=== PATIENT | female | born 2000 | race African-American/Black ===

== ENCOUNTER 2018-10-25 05:49 | Emergency (ER) | payer OTHER ==
[2018-10-25] MEDS ORDERED: BUTALB/ACETAMINOPHEN/CAFFEINE 1 TAB EACH PO ONE (06:47)
[2018-10-25] MEDS ORDERED: PROMETHAZINE HCL 25 MG TABLET PO ONE (06:47)
--- NOTE | 2018-10-25 06:51 | ER Document Report ---
ED General - General Chief Complaint: Headache Stated Complaint: HEADACHE Time Seen by Provider: 10/25/18 06:36 TRAVEL OUTSIDE OF THE [place] IN LAST 30 DAYS: No - HPI Patient complains to provider of: Headache Notes: Patient coming in for evaluation of headache. Patient has a history of migraine headaches is on Lyrica naproxen and Zofran states her medications not been helping her headache. Patient states headache is more frontal similar to her migraines in the past. Denies any head trauma denies any nausea vomiting fevers chills diarrhea recent travel. Patient states headaches been ongoing for the last 4 days. Patient otherwise amatory no obvious distress upon my evaluation resting comfortably. - Related Data Allergies/Adverse Reactions: iodine Allergy (Verified 10/25/18 06:58) Past Medical History - Social History Smoking Status: Unknown if Ever Smoked Family History: Reviewed & Not Pertinent Review of Systems - Review of Systems Constitutional: No symptoms reported EENT: No symptoms reported Cardiovascular: No symptoms reported Respiratory: No symptoms reported Gastrointestinal: No symptoms reported Genitourinary: No symptoms reported Female Genitourinary: No symptoms reported Musculoskeletal: No symptoms reported Skin: No symptoms reported Hematologic/Lymphatic: No symptoms reported Neurological/Psychological: Headaches -: Yes All other systems reviewed and negative Physical Exam - Vital signs Vitals: Temp Pulse Resp BP Pulse Ox 97.8 F 81 14 130/75 H 99 10/25/18 05:54 10/25/18 05:54 10/25/18 05:54 10/25/18 05:54 10/25/18 05:54 Interpretation: Normal - General General appearance: Appears well, Alert - HEENT Head: Normocephalic, Atraumatic Eyes: Normal Pupils: PERRL - Respiratory Respiratory status: No respiratory distress Chest status: Nontender Breath sounds: Normal Chest palpation: Normal - Cardiovascular Rhythm: Regular Heart sounds: Normal auscultation Murmur: No - Abdominal Inspection: Normal Distension: No distension Bowel sounds: Normal Tenderness: Nontender Organomegaly: No organomegaly - Back Back: Normal, Nontender - Extremities General upper extremity: Normal inspection, Nontender, Normal color, Normal ROM, Normal temperature General lower extremity: Normal inspection, Nontender, Normal color, Normal ROM, Normal temperature, Normal weight bearing. No: Lui's sign - Neurological Neuro grossly intact: Yes Cognition: Normal Orientation: AAOx4 Daniel Coma Scale Eye Opening: Spontaneous [place] Coma Scale Verbal: Oriented [place] Coma Scale Motor: Obeys Commands Daniel Coma Scale Total: 15 Speech: Normal Motor strength normal: LUE, RUE, LLE, RLE Sensory: Normal - Psychological Associated symptoms: Normal affect, Normal mood - Skin Skin Temperature: Warm Skin Moisture: Dry Skin Color: Normal Course - Re-evaluation Re-evalutation: 10/25/18 13:58 The patient presents with headache without signs of [employer] bleed, stroke, infection, or other serious etiology. The patient is neurologically intact. Given the extremely low risk of these diagnoses further testing and evaluation for these possibilities does not appear to be indicated at this time. The patient has been instructed to return if the symptoms worsen or change in any way.. Patient's physical evaluation is normal. There is no neurological deficits. Offered patient IV medications versus p.o. Patient states she rather had p.o. explained to patient we will send her home with a trial of Fioricet and Phenergan. Patient states understanding will be discharged home. - Vital Signs Vital signs: Temp Pulse Resp BP Pulse Ox 98.2 F 73 16 120/64 99 10/25/18 07:07 10/25/18 07:07 10/25/18 07:07 10/25/18 07:07 10/25/18 07:07 Discharge - Discharge Clinical Impression: Migraine Qualifiers: Migraine type: unspecified Status migrainosus presence: without status migrainosus Intractability: not intractable Qualified Code(s): G43.909 - Migraine, unspecified, not intractable, without status migrainosus Condition: Good Disposition: HOME, SELF-CARE Instructions: Headache ([facility]) Additional Instructions: Physical examination does not show any neurological findings. I have recommended to continue with your prescribed migraine medications he may try to Fioricet with severe pain. He may use the Phenergan to help out with nausea. Return to the ER if symptoms worsen. Prescriptions: Butalb/Acetaminophen/Caffeine [Fioricet 50-300-40 mg Capsule] 1 cap PO Q6 #12 cap Promethazine HCl [Phenergan 25 mg Tablet] 1 - 2 tab PO Q6H PRN #15 tablet PRN Reason: Forms: Parent Work Note, Return to Work
[2018-10-25 07:08] VITALS: BP 120/64
== END 2018-10-25 07:24 | disposition home or self-care (01) ==
LOC: ER 05:49
DX: G43.909 Migraine, unspecified, not intractable, without status migrainosus (principal); Z79.899 Other long term (current) drug therapy
CPT/HCPCS: 99283; J3490

== ENCOUNTER 2019-01-06 10:16 | Emergency (ER) | payer OTHER ==
[2019-01-06] MEDS ORDERED: LIDOCAINE 1% INJ-PF (10 MG/ML) 30 ML SDV INJ ONE (10:51)
--- NOTE | 2019-01-06 10:52 | ER Document Report ---
ED Medical Screen (RME) - General Chief Complaint: Breast Lump Stated Complaint: BREAST PAIN Time Seen by Provider: 01/06/19 10:49 TRAVEL OUTSIDE OF THE [place] IN LAST 30 DAYS: No - HPI Notes: 01/06/19 10:51 Patient is a 18-year-old female with a history of facial nerve damage and migraines who presents complaining of possible abscess to her left medial breast area. Patient states that she has had one on the right side that was draining and needed to be put on antibiotics for in the past. Patient states that this 1 has been present for about a month and 1/2 to 2 months. She has not noticed any drainage from it, but does have associated pain and some redness at times. Denies drug allergies. No history of MRSA or IV drug abuse. Denies RODRIGUEZ, fever, neck pain, URI, CP, SOB, Abd pain, dysuria, back pain. I have treated and performed a rapid initial assessment of this patient. A comprehensive ED assessment and evaluation of the patient, analysis of test results and completion of medical decision making process will be conducted by additional ED providers. PHYSICAL EXAMINATION: GENERAL: Well-appearing, well-nourished and in no acute distress. A&Ox4. Answers questions appropriately. LUNGS: Breath sounds clear to auscultation bilaterally and equal. No wheezes rales or rhonchi. HEART: Regular rate and rhythm without murmurs, rubs, gallops. Skin: + fluctuant tender area to the medial left breast. - Related Data Allergies/Adverse Reactions: iodine Allergy (Verified 01/06/19 10:24) Past Medical History Renal/ Medical History: Denies: Hx Peritoneal Dialysis Physical Exam - Vital signs Vitals: Temp Pulse Resp BP Pulse Ox 98.5 F 80 18 145/68 H 97 01/06/19 10:28 01/06/19 10:01/06/19 10:01/06/19 10:01/06/19 10:28 Course - Vital Signs Vital signs: Temp Pulse Resp BP Pulse Ox 98.5 F 80 18 145/68 H 97 01/06/19 10:28 01/06/19 10:28 01/06/19 10:01/06/19 10:28 01/06/19 10:28
--- NOTE | 2019-01-06 13:25 | RADIOLOGY REPORT (SQ) ---
EXAM DESCRIPTION: U/S CHEST COMPLETED DATE/TIME: 01/06/2019 12:42 pm REASON FOR STUDY: lump left medial breast COMPARISON: None. TECHNIQUE: Real-time and static grayscale imaging performed of the left breast targeted to the area of clinical/mammographic concern. Selected color Doppler images recorded. LIMITATIONS: None. FINDINGS: At 8 o'clock position 5 cm from the nipple there is a heterogeneous hypoechoic lesion teja uring 2.5 x 2.4 x 0.5 cm. Mobile debris and internal blood flow on color Doppler. IMPRESSION: Cellulitis. No definitive abscess. BIRAD: 3 Probably benign finding. Initial short-interval follow-up suggested. RECOMMENDATION: RECOMMENDED FOLLOW-UP: Follow-up as clinically indicated. COMMENT: The [employer] (ACR) has developed recommendations for screening MRI of the breasts in certain patient populations, to be used in conjunction with mammography. Breast MRI s urveillance may be appropriate for women with more than 20% lifetime risk of developing breast cancer as determined by genetic testing, significant family history of the disease, or history of mantle r adiation for Hodgkins Disease. ACR Practice Guidelines 2008. TECHNICAL DOCUMENTATION: JOB ID: [id number] [employer]- All Rights Reserved Reading location - IP/workstation name: [email or web address]
--- NOTE | 2019-01-06 13:35 | ER Document Report ---
ED General - General Chief Complaint: Breast Lump Stated Complaint: BREAST PAIN Time Seen by Provider: 01/06/19 10:49 TRAVEL OUTSIDE OF THE [place] IN LAST 30 DAYS: No - HPI Notes: Patient is a 18-year-old female presents emergency department for evaluation of a possible abscess on her left side of her chest. She states she had one on her right breast several months ago. It was already draining. She was treated with antibiotics. She told the physicians at [facility] about the one on her left breast at that time, they stated he would respond to antibiotics. She states that the abscessed area on her left breast has been present for 1 to 2 months. She denies any fevers or chills, no nausea or vomiting. - Related Data Allergies/Adverse Reactions: iodine Allergy (Verified 01/06/19 10:24) Past Medical History - General Information source: Patient - Social History Smoking Status: Never Smoker Frequency of alcohol use: None Drug Abuse: None Family History: Reviewed & Not Pertinent Patient has suicidal ideation: No Patient has homicidal ideation: No Neurological Medical History: Reports: Hx Migraine Renal/ Medical History: Denies: Hx Peritoneal Dialysis Review of Systems - Review of Systems Constitutional: No symptoms reported EENT: No symptoms reported Cardiovascular: No symptoms reported Respiratory: No symptoms reported Gastrointestinal: No symptoms reported Genitourinary: No symptoms reported Musculoskeletal: No symptoms reported Skin: See HPI Neurological/Psychological: No symptoms reported Physical Exam - Vital signs Vitals: Temp Pulse Resp BP Pulse Ox 98.5 F 80 18 145/68 H 97 01/06/19 10:28 01/06/19 10:28 01/06/19 10:28 01/06/19 10:28 01/06/19 10:28 - Notes Notes: Vital signs reviewed, please refer to chart. Head is normocephalic, atraumatic. Pupils equal round, reactive to light. Neck is supple without meningismus. Heart is regular rate and rhythm. Lungs are clear to auscultation bilaterally. Abdomen is soft, nontender, normoactive bowel sounds throughout. Extremities without cyanosis, clubbing. Posterior calves are nontender. Peripheral pulses are equal. Skin is warm and dry. Examination of the left breast yields a approximately 2 cm area that is firm to the touch in the medial aspect. There is no overlying erythema or edema. No palpable fluctuance. Patient is awake, alert, neurological exam is nonfocal. Course - Re-evaluation Re-evalutation: 01/06/19 14:27 Patient presents to the emergency department for evaluation. I did order an ultrasound of her left breast. This showed findings more consistent with cellulitis and actual abscess. I will get and start patient on doxycycline. She is to follow-up with primary care. I did urge the patient to seek out a mammogram as well. She is to return to the emergency department with worsening or new concerning symptoms of any sort. - Vital Signs Vital signs: Temp Pulse Resp BP Pulse Ox 98.5 F 80 18 145/68 H 97 01/06/19 10:28 01/06/19 10:28 01/06/19 10:28 01/06/19 10:28 01/06/19 10:28 Discharge - Discharge Clinical Impression: Cellulitis of left breast Condition: Stable Disposition: HOME, SELF-CARE Instructions: Cellulitis ([facility]) Additional Instructions: No abscess was seen on your ultrasound today. Take all the antibiotic as prescribed. Follow-up with your primary care physician next week. Return to the emergency department with worsening or new concerning symptoms. You should have a mammogram for further evaluation.
[2019-01-06 14:57] VITALS: BP 110/73
== END 2019-01-06 14:57 | disposition home or self-care (01) ==
LOC: ER 10:16
DX: N61.0 Mastitis without abscess (principal)
CPT/HCPCS: 76604; 99283

== ENCOUNTER 2019-07-05 06:04 | Emergency (ER) | payer OTHER ==
[2019-07-05] MEDS ORDERED: SULFAMETHOXAZOLE/TRIMETHOPRIM 800-160 MG TABLET PO ONE (08:28)
[2019-07-05] MEDS ORDERED: DOXYCYCLINE HYCLATE 100 MG TABLET PO ONE (08:30)
--- NOTE | 2019-07-05 08:31 | ER Document Report ---
HPI - HPI Patient complains to provider of: skin infection Time Seen by Provider: 07/05/19 08:01 Onset: Other - 3 days Onset/Duration: Persistent Quality of pain: Achy Pain Level: 4 Context: Patient complains of a skin infection under the right breast in the inframammary fold area. Patient states that she has had this problem off and on for several months although it worsened 3 days ago. Patient denies any purulent drainage or fever. Patient denies any breast tenderness. Associated Symptoms: denies: Fever, Nausea Exacerbated by: Movement Relieved by: Denies Similar symptoms previously: Yes Recently seen / treated by doctor: No - ROS ROS below otherwise negative: Yes Systems Reviewed and Negative: Yes All other systems reviewed and negative - CONSTITUTIONAL Constitutional: DENIES: Fever, Chills - GASTROINTESTINAL Gastrointestinal: DENIES: Nausea - REPRODUCTIVE LMP: 06/27 Reproductive: DENIES: : - DERM Skin Color: Normal Notes: skin infection under right breast Past Medical History - General Information source: Patient - Social History Smoking Status: Never Smoker Chew tobacco use (# tins/day): No Drug Abuse: None Occupation: none Lives with: Family Family History: Reviewed & Not Pertinent Patient has suicidal ideation: No Patient has homicidal ideation: No Neurological Medical History: Reports: Hx Migraine Renal/ Medical History: Denies: Hx Peritoneal Dialysis Surgical Hx: Negative Vertical Provider Document - CONSTITUTIONAL Agree With Documented VS: Yes Exam Limitations: No Limitations General Appearance: WD/WN, No Apparent Distress - INFECTION CONTROL TRAVEL OUTSIDE OF THE [place] IN LAST 30 DAYS: No - HEENT HEENT: Atraumatic, Normocephalic - NECK Neck: Normal Inspection, Supple - RESPIRATORY Respiratory: Breath Sounds Normal, No Respiratory Distress - CARDIOVASCULAR Cardiovascular: Regular Rate, Regular Rhythm - BACK Back: Normal Inspection - MUSCULOSKELETAL/EXTREMETIES Musculoskeletal/Extremeties: MAEW, FROM - NEURO Level of Consciousness: Awake, Alert, Appropriate Motor/Sensory: No Motor Deficit - DERM Integumentary: Warm, Dry Notes: Patient with inframammary follicular inflammation, no definite drainable abscess. Course - Re-evaluation Re-evalutation: 07/05/19 08:38 Patient has skin findings worrisome for likely hidradenitis. Patient encouraged to obtain chlorhexidine skin wash [id number] and to follow-up with dermatology for further evaluation. No concern for breast abscess. No cellulitis. - Vital Signs Vital signs: Temp Pulse Resp BP Pulse Ox 97.9 F 82 16 128/65 H 07/05/19 06:07 07/05/19 06:07 07/05/19 06:07 07/05/19 06:07 Discharge - Discharge Clinical Impression: Folliculitis Condition: Stable Disposition: HOME, SELF-CARE Instructions: Doxycycline ([facility]), Folliculitis ([facility]) Additional Instructions: Return immediately for any new or worsening symptoms Followup with your primary care provider, call tomorrow to make a followup appointment You have skin findings worrisome for hidradenitis suppurativa, you should clean the area with a chlorhexidine wash that you can obtain [id number]. You should have your primary doctor make a referral for dermatology for further evaluation. Prescriptions: Doxycycline Hyclate 100 mg PO BID #20 capsule Forms: Parent Work Note Referrals: CHARMAINE COLES FNP [Primary Care Provider] - Follow up tomorrow
[2019-07-05 09:03] VITALS: BP 125/82
== END 2019-07-05 09:03 | disposition home or self-care (01) ==
LOC: ER 06:04
DX: L73.9 Follicular disorder, unspecified (principal)
CPT/HCPCS: 99282